=== PATIENT | male | born 1950 | race Caucasian/White ===

== ENCOUNTER 2016-07-16 07:07 | Day surgery (SDC) | payer MEDICARE, BC, OTHER ==
[2016-07-11 11:13] LABS: HEMATOCRIT 37.1 % (40.0-51.0); HEMOGLOBIN 12.4 g/dL (13.6-17.8)
--- NOTE | ~2016-07-16 | OP ---
Record Of Operation [facility] [address] [place]. [address] NAME: PAULA DUBOIS : 48 STATUS : [facility] UNIT#: [id number] AGE: 65 ADM/REG DATE : 07/16/16 MR#: [id number] REPORT SERV DATE: 07/16/16 DICTATED BY: AJYME LOPEZ III DATE: 07/16/16 REPORT STATUS : Draft TRANSCRIBED BY: MODL DATE: 07/16/16 DATE OF PROCEDURE: 07/16/2016 PREOPERATIVE DIAGNOSIS: Left spermatocele. POSTOPERATIVE DIAGNOSIS: Left spermatocele. PROCEDURE: Left spermatocelectomy. SURGEON: Jayme Lopez M.D. ANESTHESIA: General. SPECIMEN: Spermatocele sac. BLOOD LOSS: 2 mL. INDICATION: Mr. Dubois is a 65-year-old white male with a moderately-sized left spermatocele. This has been causing him pain. Consent is obtained for a left spermatocelectomy. PROCEDURE IN DETAIL: After consent was obtained, the patient was identified. He was taken to the OR and put to sleep in the supine position. He was then prepped and draped in the usual fashion. A transverse incision was made in the left hemiscrotum and dissection was taken down through the dartos layers until the tunica vaginalis was entered. The testicle was then delivered. The spermatocele was then bluntly dissected off the surrounding tissues until there only one attachment was left to the epididymis. This was clamped and the spermatocele was removed, was cut off. A stick tie was then used at the location in the epididymis with a 3-0 chromic. The testicle was replaced in the hemiscrotum, and the skin was closed in layers with 3-0 chromic on the dartos, and the Monocryl subcuticular stitch and Dermabond placed on top of fluff gauze, a compression dressing was placed. The patient was awakened and taken to recovery in stable condition. PH/MODL Jayme Lopez III, M.D. / [id number] CC: Deb Espinoza III, ANDREW D
[~2016-07-16 07:07] MED LIST: ALLEGRA180 PO; ASAB PO; CARDURA XL8 MG PO; CIP5 PO; FISH-EPA1000 MG PO; GLUCCHONDR PO; MAXALT-MLT5 MG PO; MULTIPLE VIT PO; NEXIUM40 PO; NORCO1 TA2 PO; NORV5 PO; PEPCID40 MG OR; PROSCAR5 PO; PROZAC PO; SINGULAIR1 PO; SYMBICORT 160/41 INH INH; VENTOLIN HFA INH
[2016-07-16 07:32] LABS: BUN (BLOOD UREA NITROGEN) 14 MG/DL (6-23); CALCIUM, SERUM 8.7 MG/DL (8.5-10.4); CHLORIDE, SERUM 109 MMOL/L (96-112); CO2 (CARBON DIOXIDE) 29 MMOL/L (24-34); CREATININE 1.12 MG/DL (0.70-1.30); GFR AFRICAN AMERICAN 79 ML/MIN (>=60); GFR NON AFRICAN AMERICAN 68 ML/MIN (>=60); GLUCOSE, SERUM 98 MG/DL (60-99); POTASSIUM, SERUM 3.7 MMOL/L (3.5-5.3); SODIUM, SERUM 144 MMOL/L (135-148)
[2016-11-05] MEDS ORDERED: NITROSTAT0.4 MG SL (11:42)
[2016-11-05] MEDS ORDERED: MAXALTODT1 PO (11:43)
[2016-11-05] MEDS ORDERED: ULTRAM50 PO (11:44)
[2016-11-05] MEDS ORDERED: IMDUR30 PO (11:44)
[2016-11-05] MEDS ORDERED: COREG3 PO (11:44)
== END 2016-07-16 12:42 | disposition home or self-care (01) ==
LOC: SDC 07:07
PROVIDERS: Urology
PROC: 0VBK0ZZ Excision of Left Epididymis, Open Approach (ICD-10-PCS; principal; 2016-07-16 09:00)
DX: N43.40 Spermatocele of epididymis, unspecified (principal); I10 Essential (primary) hypertension; K21.9 Gastro-esophageal reflux disease without esophagitis; G47.33 Obstructive sleep apnea (adult) (pediatric); G43.909 Migraine, unspecified, not intractable, without status migrainosus; Z99.81 Dependence on supplemental oxygen; J45.909 Unspecified asthma, uncomplicated; J44.9 Chronic obstructive pulmonary disease, unspecified; F32.9 Major depressive disorder, single episode, unspecified; Z88.8 Allergy status to other drugs, medicaments and biological substances; M19.90 Unspecified osteoarthritis, unspecified site; Z87.442 Personal history of urinary calculi; Z98.890 Other specified postprocedural states
CPT/HCPCS: 80048; 85014; 85018; 88304; 93005; A9270-GY; J0690; J2250; J2405; J3010